=== PATIENT | female | born 1995 | race Two or more races ===

== ENCOUNTER → 2018-06-24 | Emergency (ER) | payer OTHER ==
[~2018-06-24] VITALS: Ht 149.9 cm; Wt 59.0 kg
[~2018-06-24] MED LIST: CIPRO500 MG PO; PEPCID40 MG PO; ZOFRAN ODT4 MG PO
== END | disposition home or self-care (01) ==
LOC: ER 21:32
DX: K52.9 Noninfective gastroenteritis and colitis, unspecified (principal)

== ENCOUNTER 2019-01-01 14:01 | Emergency (ER) | payer OTHER ==
[~2019-01-01] VITALS: Ht 149.9 cm; Wt 59.0 kg
[2019-01-01] MEDS ORDERED: ORPHENADRINE C100 MG PO (17:00)
[2019-01-01] MEDS ORDERED: KETO10TA2 PO (17:00)
== END 2019-01-01 17:09 | disposition home or self-care (01) ==
LOC: ER 14:01
DX: M79.18 Myalgia, other site (principal); M94.0 Chondrocostal junction syndrome [Tietze]

== ENCOUNTER 2022-12-29 19:33 | Emergency (ER) | payer OTHER ==
[~2022-12-29] VITALS: Ht 162.6 cm; Wt 77.1 kg
[~2022-12-29 19:33] MED LIST changes: +KETO10TA2 PO; +ORPHENADRINE C100 MG PO
== END 2022-12-29 22:07 | disposition home or self-care (01) ==
LOC: ER
DX: M54.9 Dorsalgia, unspecified (principal)

== ENCOUNTER → 2022-12-30 | Emergency (ER) | payer OTHER ==
[~2022-12-30] VITALS: Ht 149.9 cm; Wt 83.9 kg
[~2022-12-30] MED LIST changes: +CYCLOBENZAPRINE10 MG PO; +DICLOFENAC POTA50 MG PO
== END | disposition left against medical advice (07) ==
LOC: ER 19:30
DX: Z53.21 Procedure and treatment not carried out due to patient leaving prior to being seen by health care provider (principal)

== ENCOUNTER 2023-01-01 09:26 | Emergency (ER) | payer OTHER ==
[~2023-01-01] VITALS: Ht 149.9 cm; Wt 81.6 kg
[~2023-01-01 09:26] MED LIST changes: -CYCLOBENZAPRINE10 MG PO; -DICLOFENAC POTA50 MG PO
[2023-01-01] MEDS ORDERED: CYCLOBENZAPRINE10 MG PO (14:05)
[2023-01-01] MEDS ORDERED: DICLOFENAC POTA50 MG PO (14:05)
== END 2023-01-01 14:29 | disposition home or self-care (01) ==
LOC: ER 09:27
DX: S33.5XXA Sprain of ligaments of lumbar spine, initial encounter (principal); W19.XXXA Unspecified fall, initial encounter; Y93.9 Activity, unspecified; Y92.9 Unspecified place or not applicable; Y99.9 Unspecified external cause status

== ENCOUNTER → 2023-05-10 | Emergency (ER) | payer OTHER ==
[~2023-05-10] VITALS: Ht 149.9 cm; Wt 81.6 kg
[~2023-05-10] MED LIST changes: +CYCLOBENZAPRINE10 MG PO; +DICLOFENAC POTA50 MG PO
[2023-05-10 15:33] LABS: HEMATOCRIT 39.9 % (36.0-45.00); HEMOGLOBIN 13.5 g/dL (12.0-15.00); MEAN CELL VOLUME 86.7 fL (80.00-100.00); MEAN CORPUSCULAR HEMOGLOBIN 29.4 pg (27.00-32.0); MEAN CORPUSCULAR HGB CONC 33.9 g/dl (32.0-36.0); PLATELET COUNT 264 K/uL (150-450); RED CELL DISTRIBUTION WIDTH 12.8 % (11.5-14.5)
== END | disposition home or self-care (01) ==
LOC: ER 12:34
PROVIDERS: General Practice
DX: U07.1 COVID-19 (principal); J45.909 Unspecified asthma, uncomplicated; J11.1 Influenza due to unidentified influenza virus with other respiratory manifestations

== ENCOUNTER → 2024-02-19 | Emergency (ER) | payer OTHER ==
[~2024-02-19] VITALS: Ht 149.9 cm; Wt 81.6 kg
[2024-02-19 10:38] VITALS: BP 120/82; O2SAT 100
[2024-02-19 12:25] LABS: PH,URINE 6.5 (5.0-8.0); URINE APPEARANCE Clear; URINE BILIRRUBIN Negative (NEGATIVE); URINE BLOOD Negative; URINE COLOR Yellow; URINE GLUCOSE Negative (NEGATIVE); URINE KETONE Negative (NEGATIVE); URINE LEUKOCYTE Trace; URINE NITRATE Negative; URINE PROTEIN Negative (NEGATIVE); URINE UROBILINOGEN 0.2 E.U./dl
[2024-02-19 12:26] LABS: URINE BACTERIA 770.8 uL (0.0-1933); URINE EPITHELIAL CELLS 17.4 uL (0.0-38.8); URINE RBC 3.8 uL (0.0-20.8); URINE WBC 26.5 uL (0.0-23.2)
== END | disposition home or self-care (01) ==
LOC: ER 10:27
PROVIDERS: General Practice
DX: Z33.1 Pregnant state, incidental (principal); N91.2 Amenorrhea, unspecified

== ENCOUNTER 2024-03-14 14:15 | Emergency (ER) | payer OTHER ==
[2024-03-14] MEDS ORDERED: KETOROLAC TROMETHAMINE 60 MG VIAL IM ONE (17:30)
[2024-03-14] MEDS ORDERED: DEXAMETHASONE SODIUM PHOSPHATE 4 MG/ML VIAL IM ONE (17:30)
== END 2024-03-14 18:14 | disposition home or self-care (01) ==
LOC: ER 14:15
DX: M54.50 Low back pain, unspecified (principal); Z87.09 Personal history of other diseases of the respiratory system

== ENCOUNTER 2024-05-18 17:07 | Emergency (ER) | payer OTHER ==
[~2024-05-18] VITALS: Ht 149.9 cm; Wt 83.9 kg
[2024-05-18 21:25] LABS: HEMATOCRIT 40.2 % (36.0-45.00); HEMOGLOBIN 13.7 g/dL (12.0-15.00); MEAN CELL VOLUME 85.7 fL (80.00-100.00); MEAN CORPUSCULAR HEMOGLOBIN 29.3 pg (27.00-32.0); MEAN CORPUSCULAR HGB CONC 34.2 g/dl (32.0-36.0); PLATELET COUNT 274 K/uL (150-450); RED BLOOD COUNT 4.69 M/uL (4.00-6.00); RED CELL DISTRIBUTION WIDTH 12.7 % (11.5-14.5)
[2024-05-18 21:52] LABS: ALBUMIN 3.8 gm/dL (3.4-5.0); BILIRUBIN TOTAL 0.55 mg/dL (0.3-1.2); CALCIUM 9.6 mg/dL (8.5-10.1); CREATININE SERUM 0.78 mg/dL (0.55-1.02); GFR 89.27; GLOBULINA 4.3 G/DL (2.4-3.5); POTASSIUM 3.46 mEq/L (3.5-5.1); TOTAL PROTEIN 8.1 gm/dL (6.4-8.2)
[2024-05-18 22:20] LABS: INR 1.05; PARTIAL THROMBOPLASTIN TIME 27.4 SECONDS (22.0-34.0); PROTHROMBIN TIME 11.4 SECONDS (9.0-11.5)
== END 2024-05-18 22:46 | disposition home or self-care (01) ==
LOC: ER 17:09
PROVIDERS: General Practice
DX: N93.9 Abnormal uterine and vaginal bleeding, unspecified (principal); N83.292 Other ovarian cyst, left side; Z87.09 Personal history of other diseases of the respiratory system

== ENCOUNTER 2024-09-30 17:03 | Emergency (ER) | payer OTHER ==
[~2024-09-30] VITALS: Ht 149.9 cm; Wt 81.6 kg
[2024-09-30 17:54] VITALS: BP 108/76; O2SAT 99
[2024-09-30 19:02] LABS: BASO % 0.3 % (0.1-1.2); EOS # 0.14 (0.04-0.54); EOS % 1.4 % (0.7-7.0); HEMATOCRIT 37.8 % (34.1-44.9); HEMOGLOBIN 12.9 g/dL (11.2-15.7); LYMPH # 2.92 (1.18-3.74); LYMPH % 28.4 % (19.3-53.1); MEAN CORPUSCULAR HEMOGLOBIN 27.9 pg (25.6-32.2); MONO # 0.65 (0.24-0.82); MONO % 6.3 % (4.7-12.5); NEUT # 6.51 (1.56-6.13); NEUT % 63.2 % (34.0-71.1); PLATELET COUNT 328 K/uL (163-369); RED BLOOD COUNT 4.63 M/uL (3.93-5.22); RED CELL DISTRIBUTION WIDTH 12.1 % (11.6-14.4)
[2024-09-30 19:50] LABS: ALBUMIN 3.5 gm/dL (3.4-5.0); BILIRUBIN TOTAL 0.25 mg/dL (0.3-1.2); CALCIUM 8.8 mg/dL (8.5-10.1); CREATININE SERUM 0.67 mg/dL (0.55-1.02); GFR 106.39; GLOBULINA 3.5 G/DL (2.4-3.5); POTASSIUM 3.86 mEq/L (3.5-5.1)
== END 2024-09-30 21:04 | disposition home or self-care (01) ==
LOC: ER 17:36
PROVIDERS: General Practice
DX: O20.9 Hemorrhage in early pregnancy, unspecified (principal); Z3A.01 Less than 8 weeks gestation of pregnancy

== ENCOUNTER 2025-01-09 16:15 | Emergency (ER) | payer OTHER ==
[~2025-01-09] VITALS: Ht 149.9 cm; Wt 86.2 kg
[2025-01-09 17:05] LABS: BASO % 0.3 % (0.1-1.2); EOS # 0.15 (0.04-0.54); EOS % 1.1 % (0.7-7.0); LYMPH # 2.38 (1.18-3.74); LYMPH % 17.2 % (19.3-53.1); MEAN PLATELET VOLUME 10.80 fl (9.4-12.4); MONO # 0.92 (0.24-0.82); MONO % 6.7 % (4.7-12.5); NEUT # 10.19 (1.56-6.13); NEUT % 73.8 % (34.0-71.1); RED CELL DISTRIBUTION WIDTH 12.7 % (11.6-14.4)
[2025-01-09 17:33] LABS: ALT/SGPT 24.0 U/L (12-78); AST/SGOT 14.0 U/L (15-37); BILIRUBIN TOTAL 0.16 mg/dL (0.3-1.2); BUN CREA RATIO 16.0 (7.0-25.0); CREATININE SERUM 0.56 mg/dL (0.55-1.02); GFR 129.86; GLOBULINA 4.0 G/DL (2.4-3.5); GLUCOSE FASTING 84.0 mg/dL (65-100); OSMOLALITY SERUM 279.0 MOSM/KG (275-295)
[2025-01-09 19:18] LABS: URINE APPEARANCE Clear; URINE BILIRRUBIN Negative (NEGATIVE); URINE BLOOD Negative; URINE COLOR Yellow; URINE GLUCOSE Negative (NEGATIVE); URINE KETONE Negative (NEGATIVE); URINE LEUKOCYTE Moderate; URINE NITRATE Negative; URINE PROTEIN Negative (NEGATIVE); URINE UROBILINOGEN 0.2 E.U./dl
[2025-01-09 19:22] LABS: URINE BACTERIA 1255.2 uL (0.0-1933); URINE EPITHELIAL CELLS 53.9 uL (0.0-38.8); URINE WBC 103.8 uL (0.0-23.2)
[2025-01-09 19:36] LABS: URINE CAST 0.14 uL (0.0-1.40); URINE RBC 1.6 uL (0.0-20.8)
[2025-01-09] MEDS ORDERED: CEFTRIAXONE SODIUM 1,000 MG VIAL IV STA (19:38)
[2025-01-09] MEDS ORDERED: CEFTRIAXONE SODIUM 1,000 MG VIAL ONE (19:59)
== END 2025-01-09 20:15 | disposition home or self-care (01) ==
LOC: ER 16:15
PROVIDERS: General Practice
DX: O23.42 Unspecified infection of urinary tract in pregnancy, second trimester (principal); N39.0 Urinary tract infection, site not specified